=== PATIENT | male | born 1940 ===

== ENCOUNTER → 2021-06-01 06:20 | Outpatient (CLI) | payer OTHER ==
[~2021-06-01 06:20] MED LIST: AMBIEN10 MG PO; CIPRO750 MG PO; CIPROFLOXACIN750 MG PO; CLONAZEPAM1 MG PO; Colace 100MG PO; DOCUSATE SODIU100 MG PO; ELIQUIS5 MG PO; HYZAAR 100-121 UDTAB PO; LIPITOR20 MG PO; LYRICA50 MG PO; METHYLPRED4 MG/DOSE- PO; NEURONTIN PO; PERCOCET 5/3251 TAB PO; SYNTHROID75 MCG PO
== END | disposition home or self-care (01) ==
LOC: LAB 06:20
PROVIDERS: ATTEND Internal Medicine Hematology & Oncology
DX: D50.8 Other iron deficiency anemias (principal); R79.89 Other specified abnormal findings of blood chemistry; I10 Essential (primary) hypertension; R74.02 Elevation of levels of lactic acid dehydrogenase [LDH]; K76.89 Other specified diseases of liver; D63.8 Anemia in other chronic diseases classified elsewhere; D55.0 Anemia due to glucose-6-phosphate dehydrogenase [G6PD] deficiency; D51.1 Vitamin B12 deficiency anemia due to selective vitamin B12 malabsorption with proteinuria; D51.0 Vitamin B12 deficiency anemia due to intrinsic factor deficiency; D63.1 Anemia in chronic kidney disease; E03.8 Other specified hypothyroidism; E06.3 Autoimmune thyroiditis; R97.0 Elevated carcinoembryonic antigen [CEA]; R97.8 Other abnormal tumor markers; R97.20 Elevated prostate specific antigen [PSA]; D51.3 Other dietary vitamin B12 deficiency anemia; G62.89 Other specified polyneuropathies; N40.1 Benign prostatic hyperplasia with lower urinary tract symptoms; I73.89 Other specified peripheral vascular diseases

== ENCOUNTER 2021-06-01 08:00 | Outpatient (CLI) | payer OTHER | END 2021-06-01 08:06 | disposition home or self-care (01) | LOC: SONOGRAMA 08:00 → MAMO-SONO 08:00 → SONOGRAMA 08:06 | PROVIDERS: ATTEND Internal Medicine Hematology & Oncology | DX: E04.2 Nontoxic multinodular goiter (principal); D51.3 Other dietary vitamin B12 deficiency anemia; I10 Essential (primary) hypertension; E78.2 Mixed hyperlipidemia; E03.8 Other specified hypothyroidism; G62.89 Other specified polyneuropathies; N40.1 Benign prostatic hyperplasia with lower urinary tract symptoms; I73.89 Other specified peripheral vascular diseases ==

== ENCOUNTER 2021-08-28 08:41 | Outpatient (CLI) | payer OTHER | END 2021-08-28 08:43 | disposition home or self-care (01) | LOC: LAB 08:41 | PROVIDERS: ATTEND Internal Medicine Hematology & Oncology | DX: I10 Essential (primary) hypertension (principal); D50.8 Other iron deficiency anemias; R97.8 Other abnormal tumor markers; R74.02 Elevation of levels of lactic acid dehydrogenase [LDH]; K76.89 Other specified diseases of liver; D51.8 Other vitamin B12 deficiency anemias; D51.3 Other dietary vitamin B12 deficiency anemia; E78.2 Mixed hyperlipidemia; E03.8 Other specified hypothyroidism; N40.1 Benign prostatic hyperplasia with lower urinary tract symptoms; I73.89 Other specified peripheral vascular diseases; G62.89 Other specified polyneuropathies ==

== ENCOUNTER 2021-09-11 12:17 | Outpatient (CLI) | payer OTHER | END 2021-09-11 12:18 | disposition home or self-care (01) | LOC: LAB 12:17 | PROVIDERS: ATTEND Internal Medicine Hematology & Oncology | DX: D68.8 Other specified coagulation defects (principal); D50.8 Other iron deficiency anemias; D51.3 Other dietary vitamin B12 deficiency anemia; I10 Essential (primary) hypertension; E78.2 Mixed hyperlipidemia; E03.8 Other specified hypothyroidism; G62.89 Other specified polyneuropathies; N40.1 Benign prostatic hyperplasia with lower urinary tract symptoms; I79.8 Other disorders of arteries, arterioles and capillaries in diseases classified elsewhere ==